=== PATIENT | female | born 1985 | race Caucasian/White ===

== ENCOUNTER 2017-04-12 19:14 | Emergency (ER) | payer OTHER ==
[~2017-04-12] VITALS: Ht 167.6 cm; Wt 54.4 kg
[2017-04-12 19:32] VITALS: BP 124/79
[2017-04-12] MEDS ORDERED: AZITHROMYCIN250 M1 PO (20:07)
[2017-04-12] MEDS ORDERED: PREDNISONE10 M2 PO (20:07)
[2017-04-12] MEDS ORDERED: TESSALON PERLE100 M1 PO (20:07)
[2017-04-12] MEDS ORDERED: PROAIR HFA8.5 GM INH (20:07)
--- NOTE | 2017-04-12 20:08 | ED GENERAL ADULT ---
History of Present Illness General Chief Complaint: General Adult Stated Complaint: "I FEEL LIKE IM GOING TO PUKE WHEN I COUGH" Source: patient Exam Limitations: no limitations Vital Signs & Intake/Output Vital Signs & Intake/Output Vital Signs Date Time Temp Pulse Resp B/P B/P Pulse O2 O2 Flow FiO2 Mean Ox Delivery Rate 04/12 1931 98.3 83 18 124/79 97 Room Air Allergies Coded Allergies: No Known Allergies (04/12/17) Reconcile Medications Albuterol Sulfate (Proair Hfa) 90 MCG HFA.AER.AD 2 PUF INH Q4-6 PRN PRN BRONCHITIS Azithromycin 250 MG TABLET 1 DP PO AD BRONCHITIS 2 the first day followed by 1 for days 2-5 Benzonatate (Tessalon Perle) 100 MG CAPSULE 1 CAP PO TID PRN COUGH Prednisone 10 MG TABLET 1 TAB PO DAILY BRONCHITIS 3 TABS PO X 3 DAYS, 2 TABS PO X 3 DAYS, 1 TAB PO X 3 DAYS Triage Note: PT TO ER C/C NAUSEA X 1 HR, NO VOMITING. "THE LAST TIME I FELT THIS WAY I STARTED VOMITING FOR HOURS, SO I WANTED TO COME IN EARLY". DENIES URINARY S/S. DENIES ABD PAIN Triage Nurses Notes Reviewed? yes Onset: Gradual Duration: day(s): (1) Timing: remote history Injury Environment: home Severity: moderate Severity Numbers: 6 No Modifying Factors: none : No Patient currently breastfeeds: No HPI: Patient is a 31-year-old daily smoker presenting to the emergency department with chief complaint of upper respiratory congestion, postnasal drip, nausea has been going on for the past one day. Also reports sinus pressure. Has been using Mucinex without relief. Denies fevers or chills. No chest pain palpitations or shortness of breath. Positive intermittent productive cough. No sick contacts or recent travel. Denies abdominal pain. Denies any urinary frequency or urgency or dysuria. (Brittanie Kenney) Past History Travel History Traveled to [place] past 21 day No Medical History Any Pertinent Medical History? see below for history Surgical History Surgical History: non-contributory Psychosocial History What is your primary language Luxembourgish Tobacco Use: Current Daily Use Daily Tobacco Use Amount/Type: => 5 Cigarettes daily Family History Hx Contributory? No (Brittanie Kenney) Review of Systems Review of Systems Constitutional: Reports: no symptoms. Comments Review of systems: See HPI, All other systems negative. Constitutional, no chills fever or weight loss HEENT: No visual changes no sore throat Cardiovascular: No chest pain ,palpitation , orthopnea or ankle swelling Skin, no jaundice no rashes Respiratory: No dyspnea OR hemoptysis GI: no vomiting : No dysuria No hematuria Muscle skeletal: no back pain, no neck pain, Neurologic: No numbness no confusion Psych: No stress anxiety or depression,. Heme/endocrine: No bruising no bleeding no polyuria or polydipsia Immunology: No splenectomy or history of AIDS (Brittanie Kenney) Physical Exam Physical Exam General Appearance: well developed/nourished, no apparent distress, alert, awake , comfortable Comments: Well-developed well-nourished person in no acute distress HEENT: . Pupils equally round and reactive to light and accommodation. Nose is atraumatic. External auditory canal clear bilaterally, tympanic membranes are slightly bulging bilaterally, mildly erythematous. Pharynx is mildly erythematous, positive postnasal drip present. No swelling or edema. Clearing secretions without difficulty. Tenderness to palpation over the frontal and maxillary sinuses bilaterally. Neck: Supple, no lymphadenopathy, Back: Nontender, no CVA tenderness. Full range of motion Cardiovascular: Regular rate and rhythms no murmurs rubs or gallops, normal JVP Respiratory: Chest nontender. No respiratory distress.slight expiratory wheeze to auscultation bilaterally Extremity: No edema Neuro: Alert oriented x3 Skin: No appreciable rash on exposed skin, skin is warm and dry. Psych: Mood and affect is normal, memory and judgment is normal. Core Measures ACS in differential dx? No CVA/TIA Diagnosis: No Sepsis Present: No Sepsis Focused Exam Completed? No (Brittanie Kenney) Progress Differential Diagnoses I considered the following diagnoses in my evaluation of the patient: Bronchitis, pneumonia, sinusitis, postnasal drip, viral syndrome Plan of Care: Orders Procedure Date/time Status URINE 04/12 1952 Complete Laboratory Tests 04/12/171956: Urine Test NEGATIVE Initial ED EKG: none (Brittanie Kenney) Departure Departure Time of Disposition: 2003 Disposition: HOME OR SELF CARE Condition: Stable Clinical Impression Primary Impression: Sinusitis Qualifiers: Sinusitis location: unspecified location Chronicity: acute Recurrence: not specified as recurrent Qualified Code: J01.90 - Acute sinusitis, unspecified Secondary Impressions: Bronchitis Referrals: Patient Has No Primary Care Dr (PCP/Family) Additional Instructions: Follow-up with your primary care physician in the next 5-7 days, call to make an appointment. Increase fluids. Take azithromycin, prednisone, and Tessalon Perles as prescribed. Use pro-air inhaler as directed to help with bleeding. Return for recurrent symptoms or concerns. Departure Forms: Customer Survey General Discharge Information Prescriptions: Current Visit Scripts Azithromycin 1 DP PO AD #6 TAB 2 the first day followed by 1 for days 2-5 Benzonatate (Tessalon Perle) 1 CAP PO TID PRN COUGH #30 CAP Prednisone 1 TAB PO DAILY #18 TAB 3 TABS PO X 3 DAYS, 2 TABS PO X 3 DAYS, 1 TAB PO X 3 DAYS Albuterol Sulfate (Proair Hfa) 2 PUF INH Q4-6 PRN PRN BRONCHITIS #1 INHAL (Brittanie Kenney) PA/FINANCIAL SERVICES AGENT Co-Sign Statement Statement: ED Attending supervision documentation- I saw and evaluated the patient. I have also reviewed all the pertinent lab results and diagnostic results. I agree with the findings and the plan of care as documented in the PA's/FINANCIAL SERVICES AGENT's documentation. x I have reviewed the ED Record and agree with the PA's/FINANCIAL SERVICES AGENT's documentation. [] Additions or exceptions (if any) to the PAs/FINANCIAL SERVICES AGENT's note and plan are summarized below: [] (Regis RITTER,Guzman) Critical Care Note Critical Care Note Critical Care Time: non-applicable (Brittanie Kenney)
== END 2017-04-12 20:14 ==
LOC: ERH 19:14
DX: J32.9 Chronic sinusitis, unspecified (principal); J40 Bronchitis, not specified as acute or chronic; F17.210 Nicotine dependence, cigarettes, uncomplicated
CPT/HCPCS: 81025